=== PATIENT | female | born 1995 | race Hispanic/Latino ===

== ENCOUNTER 2024-07-10 17:39 | Emergency (ER) | payer MEDICAID ==
[~2024-07-10] VITALS: Ht 170.2 cm; Wt 88.5 kg
--- NOTE | 2024-07-10 18:31 | HMCIMG ---
US OB <14 WEEKS REASON: abd pain COMPARISON: None TECHNIQUE: Transvaginal pelvic sonogram was performed. FINDINGS: There is an intrauterine gestational sac. There is a pole corresponding with a 12 week 1 day IUP, +/- 1 week. Heart rate is 159 BPM. Both ovaries appear normal. There are no adnexal masses. There is no free fluid in the cul-de-sac. IMPRESSION: 1. Viable appearing 12 week 1 day IUP +/- 1 week.
--- NOTE | 2024-07-10 18:37 | ERN ---
ED Note History of Present Illness Stated Complaint: DIZZINESS, NAUSEA, ABD PRESSURE 11 WEEKS Chief Complaint: Abdominal Pain in Time Seen by MD: 17:41 Time Seen by Midlevel: 17:41 Dictation: The patient is a 29-year-old female with no significant past medical history who presents to the emergency department with complaints of on and off lightheadedness for one month. Patient reports concerned with the anemia. She reports occasional headaches. Currently not having a headache. Denies any syncope but reports a trip and fall week ago which hurt her left knee but denies any abdominal trauma, head trauma, LOC, use of blood thinners. Patient reports being11 weeks . G1. Denies any current vaginal bleeding but reports some spotting over the weekend. Patient reports suprapubic pressure. And some nausea but no vomiting, diarrhea or constipation. Denies any fevers. Patient of Dr. Bowen patient has her 1st appointment on the . Allergies: Coded Allergies: Influenza Virus Vaccines (Unverified Allergy, Unknown, 07/10/24) No Known Drug Allergies (Unverified Allergy, Unknown, 06/09/22) Past Medical History Past Medical History: Anxiety Surgical History: None, Unknown LMP: Apr 14, 2024 : 1 Para: 0 Aborts: 0 Review of System Dictation Constitutional: Negative for fever,chills, and weight loss Eyes: Negative for injury, pain,redness, and discharge ENT: Negative for injury,pain or swelling Cardiovascular: Negative for chest pain, palpitations, and edema Respiratory: Negative for shortness of breath, cough, and wheezing, Abdomen/GI: Negative for vomiting, diarrhea, and constipation positive for abdominal pain, nausea Back: Negative for injury and pain : Negative for injury, bleeding and discharge MS/Extremity: Negative for injury and deformity Skin: Negative for rash, and discoloration Neuro: Negative for headache, weakness, numbness, tingling, and seizure positive for lightheadedness Psych: Negative for suicide ideation, homicidal ideation, and hallucinations Initial Vital Sign VS Vital Signs Date Time Temp Pulse Resp B/P (MAP) Pulse Ox O2 Delivery O2 Flow Rate FiO2 07/10/24 17:40 98.1 77 16 155/108 99 Room Air 0 Physical Exam Dictation Vital Signs reviewed General Appearance: Alert, oriented x 3, no acute distress, well developed, nourished. Head and Face: non-traumatic. Eyes: PERRL, pink conjunctivas, eyelid no trauma, anterior chamber with arcus senilis. Ears: Pinnas intact and no signs of trauma or erythema ear canals clear and no discharge TM no erythema Nose: No discharge, no bleeding. Oropharynx: Mouth normal, tongue pink. pharynx clear,no erythema, tonsils no exudates, no abscesses noted, mucous membrane moist Neck: Supple, non-tender, no thyromegaly, no masses, no JVD, no bruits Breast:Deferred Chest:No tenderness, no crepitus, no paradoxical movement, no retractions Lungs:Clear, well-ventilated, symmetric, no rales, no wheezing, no rhonchi, no stridor, good breath sounds bilaterally Heart: Regular rate, regular rhythm, no murmur, no gallops Vascular: no peripheral edema, Abdomen: Soft, positive bowel sounds, nondistended, no guarding, nontender, no rebound, no masses no hepatomegaly, no splenomegaly, no Barron's sign, no hernias. Rectal: Deferred Genital: Deferred Neurological: Normal speech, motor function intact, sensory function intact Musculoskeletal: Neck nontender, full range of motion, back nontender, full range of motion, Extremities: nontender, full range of motion Skin: Color pink, dry, no turgor, no rash, no lacerations, no abrasions, no contusions. Lymphatic: Deferred Results (Laboratory/Radiology) Laboratory/Radiology Laboratory Tests Test 07/10/24 18:30 07/10/24 19:04 White Blood Count 12.5 K/uL (4.8-10.8) H Red Blood Count 4.80 MIL/uL (4.00-5.50) Hemoglobin 13.1 g/dL (12.0-16.0) Hematocrit 41.3 % (36-48) Mean Corpuscular Volume 86.0 fL (79-99) Mean Corpuscular Hemoglobin 27.3 pg (27.0-33.0) Mean Corpuscular Hemoglobin Concent 31.7 g/dL (32.0-36.0) L Red Cell Distribution Width 13.3 % (11.0-15.5) Platelet Count 358 K/uL (130-400) Mean Platelet Volume 10.5 fL (7.5-10.5) Immature Granulocyte % (Auto) 0.3 % (0-1) Neutrophils (%) (Auto) 73.2 % (40.0-77.0) Lymphocytes (%) (Auto) 18.3 % (21.0-51.0) L Monocytes (%) (Auto) 6.5 % (3.0-13.0) Eosinophils (%) (Auto) 1.4 % (0.0-8.0) Basophils (%) (Auto) 0.3 % (0.0-5.0) Neutrophils # (Auto) 9.1 K/uL (1.8-7.7) H Lymphocytes # (Auto) 2.3 K/uL (1.0-4.8) Monocytes # (Auto) 0.8 K/uL (0.1-1.0) Eosinophils # (Auto) 0.18 K/uL (0.00-0.70) Basophils # (Auto) 0.04 K/uL (0.00-0.20) Absolute Immature Granulocyte (auto 0.04 K/uL (0-1) Nucleated Red Blood Cells 0.0 % (0.0-0.19) Sodium Level 137 mmol/L (136-145) Potassium Level 3.6 mmol/L (3.5-5.1) Chloride Level 101 mmol/L (101-111) Carbon Dioxide Level 31 mmol/L (21-32) Blood Urea Nitrogen 8 mg/dL (7-18) Creatinine 1.0 mg/dL (0.5-1.0) Glomerular Filtration Rate Calc 78 mL/min (>90) Random Glucose 79 mg/dL (70-105) Total Calcium 9.4 mg/dL (8.5-10.1) Total Bilirubin 0.3 mg/dL (0.2-1.0) Direct Bilirubin < 0.1 mg/dL (0.0-0.3) Aspartate Amino Transf (AST/SGOT) 13 U/L (10-37) Alanine Aminotransferase (ALT/SGPT) 21 U/L (12-78) Alkaline Phosphatase 49 U/L (50-136) L Total Protein 7.5 g/dL (6.0-8.3) Albumin 3.7 g/dL (3.5-5.0) Human Chorionic Gonadotropin, Quant 13104 mIU/mL (0-5) H Urine Color YELLOW (YELLOW) Urine Appearance CLOUDY (CLEAR) H Urine pH 6.5 (5.0-8.0) Urine Specific Buena 1.022 (1.001-1.031) Urine Protein 20 mg/dL (NEGATIVE) H Urine Glucose (UA) NEGATIVE mg/dL (NEGATIVE) Urine Ketones NEGATIVE mg/dL (NEGATIVE) Urine Occult Blood NEGATIVE (NEGATIVE) Urine Nitrate 1+ (NEGATIVE) H Urine Bilirubin NEGATIVE mg/dL (NEGATIVE) Urine Urobilinogen 0.2 mg/dL (0.2-1.0) Urine Leukocyte Esterase 75 Sancho/uL (NEGATIVE) H Urine RBC 2-5 /HPF (0-1) H Urine WBC 11-25 /HPF (0-1) H Urine Squamous Epithelial Cells FEW /HPF (0-2) Urine Bacteria RARE /HPF (None Seen) Urine Opiates Screen NEGATIVE (NEGATIVE) Urine Barbiturates Screen NEGATIVE (NEGATIVE) Urine Phencyclidine Screen NEGATIVE (NEGATIVE) Urine Amphetamines Screen NEGATIVE (NEGATIVE) Urine Benzodiazepines Screen NEGATIVE (NEGATIVE) Urine Cocaine Screen NEGATIVE (NEGATIVE) Urine Marijuana (THC) Screen POSITIVE (NEGATIVE) H REASON: abd pain ORDERING PHYSICIAN: FRANKY LINN PACKERHEAD MACHINE OPERATOR PROCEDURE: OB <14 - US OB <14 WEEKS US OB <14 WEEKS REASON: abd pain COMPARISON: None TECHNIQUE: Transvaginal pelvic sonogram was performed. FINDINGS: There is an intrauterine gestational sac. There is a pole corresponding with a 12 week 1 day IUP, +/- 1 week. Heart rate is 159 BPM. Both ovaries appear normal. There are no adnexal masses. There is no free fluid in the cul-de-sac. IMPRESSION: 1. Viable appearing 12 week 1 day IUP +/- 1 week. Labs Reviewed?: Yes EKG: (+) NSR EKG Comment: EKG 07/10/2024 1834 ventricular rate 70, regular rate and rhythm, normal sinus rhythm, no STEMI ED Course ED Course Orders Procedure Category Date Status Time Cbc With Differential LAB 07/10/24 Complete 17:54 Abo/Rh BBK 07/10/24 Complete 17:54 Hcg,Quantitative LAB 07/10/24 Complete 17:54 0.9%Nacl 1000ml (Ns PHA 07/10/24 Complete 1000ml) 18:00 Ondansetron 4mg Inj PHA 07/10/24 Complete (Zofran 4mg Inj) 18:00 Basic Metabolic Panel LAB 07/10/24 Complete 17:54 Acetaminophen 500mg PHA 07/10/24 Complete Tab (Tylenol 500mg T 18:00 12 Lead Ekg Tracing- EKG 07/10/24 Complete Technical 17:54 Hepatic Function Panel LAB 07/10/24 Complete 17:54 Us Ob <14 Weeks US 07/10/24 Resulted 17:54 Urinalysis Profile LAB 07/10/24 Complete 17:54 Drug Screen Urine LAB 07/10/24 Complete 19:16 Culture Urine HENRIETTA 07/10/24 In Process 19:30 Ceftriaxone 1g Vial PHA 07/10/24 Complete (Rocephine 1g Inj) 20:00 Current Medications Medications (Trade) Dose Ordered Sig/Jennifer Route PRN Reason Start Time Stop Time Status Last Admin Dose Admin Acetaminophen (TYLenol 500MG TAB) 1,000 mg ONCE ONCE PO 07/10/24 18:00 07/10/24 18:01 DC 07/10/24 20:13 Ceftriaxone Sodium (ROCEphine 1G INJ) 1 gm ONCE ONCE IVPB 07/10/24 20:00 07/10/24 20:01 DC 07/10/24 20:13 Ondansetron HCl (zoFRAN 4MG INJ) 4 mg ONCE ONCE IVP 07/10/24 18:00 07/10/24 18:01 DC 07/10/24 20:13 Sodium Chloride 1,000 ml @ 0 mls/hr ONCE ONCE IV 07/10/24 18:00 07/10/24 18:01 DC 07/10/24 20:13 Vital Signs Date Time Temp Pulse Resp B/P (MAP) Pulse Ox O2 Delivery O2 Flow Rate FiO2 07/10/24 17:40 98.1 77 16 155/108 99 Room Air 0 Medical Decision Making MDM The patient is a 29-year-old female with no significant past medical history who presents to the emergency department with complaints of on and off lightheadedness for one month. Patient reports concerned with the anemia. She reports occasional headaches. Currently not having a headache. Denies any syncope but reports a trip and fall week ago which hurt her left knee but denies any abdominal trauma, head trauma, LOC, use of blood thinners. Patient reports being11 weeks . G1. Denies any current vaginal bleeding but reports some spotting over the weekend. Patient reports suprapubic pressure. And some nausea but no vomiting, diarrhea or constipation. Denies any fevers. Patient of Dr. Bowen patient has her 1st appointment on the . CBC showed mild leukocytosis, no anemia, chemistry showed GFR of 73 , creatinine of 1.0, no electrolyte abnormalities , urinalysis positive for leukocyte estera se and nitrites. Patient was giving a dose of Rocephin in ER and will be discharged with antibiotics. Patient did test positive for marijuana. Ultrasound revealed a intrauterine viable 12 weeks. Patient continues with no neurological deficits, no vaginal bleeding. Patient will be discharged to follow up with Dr. Bowen. Labs and imaging discussed with the patient who agrees to be discharged and follow up. Differential diagnosis: UTI, ectopic , tachyarrhythmia, dehydration Need for hospitalization: Patient does not meet criteria for hospitalization. There are no social concerns with this patient. DX & DISP Disposition: Discharge Departure Impression: Primary Impression: 12 weeks gestation of Additional Impressions: Abdominal pain during , UTI (urinary tract infection), Mild tetrahydrocannabinol (THC) abuse, Feeling light headed Condition: Stable Scripts Cephalexin Monohydrate (Keflex) 500 Mg Cap 500 MG PO QID for 5 Days, #20 CAP Prov: FRANKY LINN PACKERHEAD MACHINE OPERATOR 07/10/24 Additional Instructions: Please take antibiotics as prescribed. Please follow up with the primary doctor in 1-2 days. Please return to ER if symptoms worsen. Make sure you follow up with your OBGYN. FOLLOW-UP WITH PRIMARY CARE PROVIDER IN 1 TO 2 DAYS. TAKE MEDICATIONS DIRECTED HERE IN THE EMERGENCY ROOM. OKAY TO CONTINUE HOME MEDICATIONS UNLESS OTHERWISE DISCUSSED DURING YOUR VISIT IN THE EMERGENCY ROOM TODAY. RETURN TO YOUR NEAREST EMERGENCY ROOM IF SYMPTOMS WORSEN OR IF THERE IS NO IMPROVEMENT. CALL 911 IF YOU NEED IMMEDIATE ASSISTANCE. TAKE TYLENOL OR MOTRIN OVER-THE- COUNTER NEEDED AND IF NO CONTRAINDICATIONS ARE PRESENT. INCREASE ORAL HYDRATION. A WOUND CULTURE OR URINE CULTURE WAS ORDERED HERE IN THE EMERGENCY ROOM DEPARTMENT PLEASE FOLLOW-UP WITH PRIMARY CARE PROVIDER AND ADVISE THEM TO GET REPEAT PORTS FROM OUR FACILITY. IF YOU HAD ANY ADAM WRAP/SPLINTS THAT WERE APPLIED HERE, PLEASE DO NOT REMOVE THEM UNTIL YOU SEE YOUR PRIMARY CARE OR SPECIALTY. Referrals: SELF,REFERRAL (PCP) Time of Disposition: 20:22 I have reviewed the case, and I agree with, Diagnosis and Plan FRANKY LINN [facility] Jul 10, 2024 18:37
--- NOTE | 2024-07-10 18:40 | EKG ---
[facility] Test Date: 2024-07-10 Test Time: 18:34:14 Pat Name: LOLA OAKES Department: ED Room: Gender: F Quality Systems Manager: [id number] : 1995 Requested By: FRANKY LINN Order Number: [id number] Reading MD: Varun Caro Measurements Intervals [place] Rate: 70 P: 4 VA: 125 QRS: 40 QRSD: 76 T: 14 QT: 366 QTc: 395 Interpretive Statements Sinus rhythm No previous ECG available for comparison Electronically Signed On 07-11-2024 14:05:50 [employer] by Varun Caro Please click the below link to view image of tracing.
[2024-07-10 18:44] LABS: BASOPHILS # (AUTO) 0.04 K/uL (0.00-0.20); BASOPHILS % (AUTO) 0.3 % (0.0-5.0); EOSINOPHILS # (AUTO) 0.18 K/uL (0.00-0.70); EOSINOPHILS % (AUTO) 1.4 % (0.0-8.0); HEMATOCRIT 41.3 % (36-48); IMMATURE GRANULOCYTE ABSOLUTE 0.04 K/uL (0-1); LYMPHOCYTES # (AUTO) 2.3 K/uL (1.0-4.8); LYMPHOCYTES % (AUTO) 18.3 % (21.0-51.0); MEAN CORPUSCULAR HEMOGLOBIN 27.3 pg (27.0-33.0); MEAN CORPUSCULAR HGB CONC 31.7 g/dL (32.0-36.0); MONOCYTES # (AUTO) 0.8 K/uL (0.1-1.0); MONOCYTES % (AUTO) 6.5 % (3.0-13.0); NEUTROPHILS # (AUTO) 9.1 K/uL (1.8-7.7); NEUTROPHILS % (AUTO) 73.2 % (40.0-77.0); PLATELET COUNT (AUTO) 358 K/uL (130-400); RED CELL DISTRIBUTION WIDTH 13.3 % (11.0-15.5); WHITE BLOOD COUNT (AUTO) 12.5 K/uL (4.8-10.8)
[2024-07-10 18:59] LABS: CARBON DIOXIDE 31 mmol/L (21-32); CHLORIDE 101 mmol/L (101-111); GLOMERULAR FILTR. RATE CALC 78 mL/min (>90); GLUCOSE,RANDOM 79 mg/dL (70-105); POTASSIUM 3.6 mmol/L (3.5-5.1); SODIUM SERUM 137 mmol/L (136-145); UREA NITROGEN, BLOOD 8 mg/dL (7-18)
[2024-07-10 19:27] LABS: APPEARANCE,URINE CLOUDY (CLEAR); BILIRUBIN,URINE NEGATIVE (NEGATIVE); COLOR,URINE YELLOW (YELLOW); GLUCOSE, URINE (UA) NEGATIVE (NEGATIVE); KETONES,URINE NEGATIVE (NEGATIVE); LEUKOCYTE ESTERASE ,URINE 75 Leu/uL (NEGATIVE); NITRATE,URINE 1+ (NEGATIVE); OCCULT BLOOD,URINE NEGATIVE (NEGATIVE); PH,URINE 6.5 (5.0-8.0); PROTEIN,URINE 20 mg/dL (NEGATIVE); UROBILINOGEN,URINE 0.2 mg/dL (0.2-1.0)
[2024-07-10 19:29] LABS: ALANINE AMINOTRANSFERASE 21 U/L (12-78); ALBUMIN 3.7 g/dL (3.5-5.0); ASPARTATE AMINOTRANSFERASE 13 U/L (10-37); BILIRUBIN,DIRECT < 0.1 mg/dL (0.0-0.3); BILIRUBIN,TOTAL 0.3 mg/dL (0.2-1.0); HCG,QUANTITATIVE 65075 mIU/mL (0-5); TOTAL PROTEIN, SERUM 7.5 g/dL (6.0-8.3)
[2024-07-10 19:29] LABS: ADD UA MICROSCOPIC YES
[2024-07-10 19:32] LABS: BACTERIA,URINE RARE /HPF (None Seen); MUCUS,URINE RARE LPF (None Seen); SQUAMOUS EPITHELIAL CELL,UR FEW /HPF (0-2)
[2024-07-10 19:34] LABS: AMPHET/METH SCREEN,URINE NEGATIVE (NEGATIVE); BARBITURATE SCREEN, URINE NEGATIVE (NEGATIVE); BENZODIAZEPINES SCREEN,URINE NEGATIVE (NEGATIVE); CANNABINOID SCREEN,URINE POSITIVE (NEGATIVE); COCAINE SCREEN,URINE NEGATIVE (NEGATIVE); OPIATE SCREEN,URINE NEGATIVE (NEGATIVE); PHENCYCLIDINE SCREEN,URINE NEGATIVE (NEGATIVE)
[2024-07-10] MEDS: cefTRIAXone 1G VIAL IVPB ONE (20:13)
[2024-07-10] MEDS: ondanSETRON 4MG INJ IVP ONE (20:13)
[2024-07-10] MEDS: 0.9%NACL 1000ML 1,000 ML IV ONE (20:13)
[2024-07-10] MEDS: acetaMINOPHEN 500 MG TABLET PO ONE (20:13)
--- NOTE | 2024-07-10 20:14 | NUR ---
ASSUMED PT CARE
[2024-07-10] MEDS ORDERED: CEPH500B PO (20:26)
[2024-07-10 20:30] VITALS: BP 124/72; PULSE 60; RESP 18; TEMP 98.4; O2SAT 100
== END 2024-07-10 20:55 | disposition home or self-care (01) ==
LOC: EDH 17:39
DX: O26.891 Other specified pregnancy related conditions, first trimester (principal); R42 Dizziness and giddiness; O23.41 Unspecified infection of urinary tract in pregnancy, first trimester; N39.0 Urinary tract infection, site not specified; R10.2 Pelvic and perineal pain; O99.321 Drug use complicating pregnancy, first trimester; F12.10 Cannabis abuse, uncomplicated; Z3A.12 12 weeks gestation of pregnancy; Z88.7 Allergy status to serum and vaccine
CPT/HCPCS: 99285; 96374; 76801; 96375; 80076; 80048; 80305; 84702; 85025; 86900; 86901; 87086; 36415; 93005; 81001; J7030; J0696; J2405